=== PATIENT | female | born 2005 | race Caucasian/White ===

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

== ENCOUNTER 2025-01-02 13:27 | Outpatient (CLI) | payer BC, SELFPAY ==
--- NOTE | 2025-01-02 13:45 | CRLHL7_ITS ---
For Patients: As a result of the Cures Act, medical imaging exams and procedure reports are released immediately into your electronic medical record. You may view this report before your referring provider. If you have questions, please contact your health care provider. INDICATION: Bicornuate uterus. COMPARISON: Pelvic ultrasound dated 18 December 2024. TECHNIQUE: MRI of the abdomen and pelvis with T1 in- and out of phase, T2, diffusion weighted, and postcontrast images. Intravenous gadolinium administered. FINDINGS: Abdomen: No fatty infiltration of the liver. No focal abnormalities identified in the visualized portions of the liver, spleen, pancreas, adrenal glands, and kidneys. No hydronephrosis. No adenopathy. Pelvis: Arcuate uterus. The uterus is otherwise unremarkable. Normal thickness of the endometrial stripe measuring 1.3 cm. Normal appearance of the ovaries. Small amount of free fluid in the pelvis. No adenopathy. Impression : 1. Arcuate uterus. The uterus is otherwise unremarkable. 2. Normal appearance of the kidneys. Dictated by Chandra Macias MD @ 01/03/2025 9:00:47 AM (Electronically Signed)
== END 2025-01-02 13:28 | disposition home or self-care (01) ==
LOC: MRI 13:29
PROVIDERS: Visit Provider Physician Assistant
DX: Q51.3 Bicornate uterus (principal); R93.5 Abnormal findings on diagnostic imaging of other abdominal regions, including retroperitoneum
CPT/HCPCS: 72197; 74183; A9575